=== PATIENT | female | born 1965 | race African-American/Black ===

== ENCOUNTER 2017-12-22 18:11 | Emergency (ER) | payer OTHER ==
[~2017-12-22] VITALS: Ht 157.5 cm; Wt 78.5 kg
[~2017-12-22 18:11] MED LIST: BYSTOLIC 5 MG5 M1; CARTIA XT120 M1 PO; LISINOPRIL10 MG; LOPRESSOR50 PO; POTASSIUM20 PO; SYNTHROID50 MCG PO; TELMISARTAN-HC1 EACH PO; VITAMIN D 5050000 I1 PO; ZESTORETIC 20-1 EACH PO
[2017-12-22] MEDS ORDERED: [UNRECOGNIZED DRUG - REMARK] (18:22)
[2017-12-22 18:31] LABS: ABSOLUTE BASOPHILS 0.1 thou/uL (0.0-0.2); ABSOLUTE EOSINOPHILS 0.2 thou/uL (0.0-0.7); ABSOLUTE LYMPHOCYTES 2.9 thou/uL (0.8-5.3); ABSOLUTE MONOCYTES 0.5 thou/uL (0.0-1.2); ABSOLUTE NEUTROPHILS 6.6 thou/uL (1.6-8.1); BASOPHILS 1.3 %; EOSINOPHILS 1.6 %; HEMOGLOBIN 14.3 gm/dL (12.0-15.0); LYMPHOCYTES 28.1 %; MCH 31.3 pg (26.0-34.0); MCHC 33.2 g/dL (28.0-37.0); MCV 94.4 fL (80.0-100.0); MONOCYTES 4.6 %; MPV 9.1 fl. (7.2-11.1); NUCLEATED RBCS 0 /100WBC; PLATELET COUNT* 343 thou/uL (150-400); POLYS 64.4 %; RBC 4.56 mil/uL (4.20-5.00); RDW-CV 14.5 % (10.5-14.5); WBC 10.2 thou/uL (4.0-11.0)
[2017-12-22 18:50] LABS: ANION GAP 3 mmol/L (7-16); BUN 18 mg/dL (7-18); CALCIUM 8.9 mg/dL (8.5-10.1); CHLORIDE 107 mmol/L (98-107); CO2 32 mmol/L (21-32); CREATININE 1.1 mg/dL (0.6-1.3); GLUCOSE 75 mg/dL (70-99); POTASSIUM 3.6 mmol/L (3.5-5.1); SODIUM 142 mmol/L (136-145)
[2017-12-22 19:05] LABS: ALBUMIN 3.5 g/dL (3.4-5.0); ALKALINE PHOSPHATASE 73 U/L (46-116); NT-PRO BRAIN NAT PEPTIDE 219 pg/mL (<300); SGOT 22 U/L (15-37); SGPT 31 U/L (30-65); TOTAL BILIRUBIN 0.4 mg/dL (<0.1-1.0); TROPONIN-I LEVEL <0.06 ng/mL (<0.06)
[2017-12-22 19:07] LABS: APTT 29.6 Seconds (25.0-31.3); PROTIME 10.2 Seconds (9.20-11.50)
[2017-12-22 19:39] LABS: URINE BILIRUBIN NEGATIVE (Negative); URINE BLOOD NEGATIVE (Negative); URINE CLARITY CLEAR; URINE COLOR YELLOW; URINE GLUCOSE-RANDOM NEGATIVE (Negative); URINE KETONES NEGATIVE (Negative); URINE LEUKOCYTES-REFLEX NEGATIVE (Negative); URINE NITRITE-REFLEX NEGATIVE (Negative); URINE PROTEIN NEGATIVE (Negative); URINE SPECIFIC GRAVITY 1.015 (1.005-1.030); URINE UROBILINOGEN 0.2 E.U./dl (0.2-1.0)
[2017-12-22 19:57] VITALS: BP 154/83
--- NOTE | 2017-12-23 13:55 | EKG ---
[place] [address] ELECTROCARDIOGRAM REPORT Name: TYLER CHRISTENSEN Room: [facility]#: [id number] Admission: 12/22/17 Attend Phys: Discharge: 12/22/17 Date of : 63 Report #: [id number] THIS REPORT FOR: //name// [facility] ED Test Date: 2017-12-22 Test Time: 18:26:10 Pat Name: TYLER CHRISTENSEN Department: Room: Gender: F Television Agent: David JEREZ : 1965 Requested By: Félix Alfaro Order Number: [id number] MD: Shaka Hooks Measurements Intervals [place] Rate: 64 P: 40 [place]: 136 QRS: -9 QRSD: 78 T: 4 QT: 406 QTc: 419 Interpretive Statements Sinus rhythm Probable left atrial enlargement Possibleanteroseptal infarct, old Compared to ECG 07/12/2016 00:52:23 Myocardial infarct finding now present T-wave abnormality no longer present Electronically Signed On 12-23-2017 13:55:23 CDT by Shaka Hooks [email or web address] <ELECTRONICALLY SIGNED> By: Shaka Hooks MD, FACC 12/23/17 [id number] 1826 Shaka Hooks MD, FAC /EPI
== END 2017-12-22 19:57 | disposition home or self-care (01) ==
LOC: M.ERS 18:11
PROVIDERS: Family Medicine
DX: R55 Syncope and collapse (principal); I10 Essential (primary) hypertension; E03.9 Hypothyroidism, unspecified; Z90.710 Acquired absence of both cervix and uterus; Z88.2 Allergy status to sulfonamides